=== PATIENT | male | born 1950 | race Caucasian/White ===

== ENCOUNTER 2018-07-18 14:54 | Emergency (ER) | payer OTHER ==
[~2018-07-18] VITALS: Ht 175.3 cm; Wt 72.6 kg
[~2018-07-18 14:54] MED LIST: CATAFLAM50 MG PO; CIPRO500 MG PO; DOXAZOSIN MESYLA2 MG; ENALAPRIL MALEA10 MG; GLIPIZIDE10 MG; SURFAK240 M1 PO; ULTRACET PO
== END 2018-07-18 18:42 | disposition home or self-care (01) ==
LOC: ER 14:54
DX: J11.1 Influenza due to unidentified influenza virus with other respiratory manifestations (principal); J32.0 Chronic maxillary sinusitis

== ENCOUNTER 2021-10-05 18:52 | Inpatient (IN) | payer OTHER ==
[~2021-10-05] VITALS: Ht 172.7 cm; Wt 77.1 kg
[2021-10-05] MEDS ORDERED: JANUVIA25 MG PO (19:12)
[2021-10-05] MEDS ORDERED: INTEGRA PLUS C1 EACH PO (19:13)
[2021-10-05] MEDS ORDERED: VALSARTAN320 MG PO (19:13)
[2021-10-05] MEDS ORDERED: NEURONTIN300 MG PO (19:13)
[2021-10-05] MEDS ORDERED: LABETALOL HCL200 MG (19:14)
[2021-10-05] MEDS ORDERED: PENTOXIFYLLINE400 MG PO (19:14)
[2021-10-05] MEDS ORDERED: CHILDREN'S ASPI81 MG PO (19:14)
[2021-10-06] MEDS ORDERED: AMLODIPINE BESYL5 MG (15:46)
[2021-10-06] MEDS ORDERED: SIMVASTATIN40 MG (15:47)
[2021-10-06] MEDS ORDERED: DOXAZOSIN MESYLA4 MG (15:47)
[2021-10-16] MEDS ORDERED: NIFEDIPINE ER60 MG PO (16:14)
[2021-10-16] MEDS ORDERED: INTEGRA PLUS C1 EACH PO (16:14)
[2021-10-16] MEDS ORDERED: VITAMIN D3125 MC2 PO (16:14)
[2021-10-16] MEDS ORDERED: LOSARTAN POTASS50 MG PO (16:14)
[2021-10-16] MEDS ORDERED: LABETALOL HCL200 MG PO (16:14)
[2021-10-16] MEDS ORDERED: ST. JOSEPH ASPI81 M2 PO (16:14)
[2021-10-16] MEDS ORDERED: CARdura 4MG TABLET PO (16:14)
[2021-10-16] MEDS ORDERED: Lantus 1000 UNITS/10 SUBCUTANEO (16:14)
[2021-10-16] MEDS ORDERED: GABAPENTIN300 MG PO (16:14)
[2021-10-16] MEDS ORDERED: SIMVASTATIN40 MG PO (16:14)
[2021-10-16] MEDS ORDERED: B Complex CAPSULE PO (16:14)
[2021-10-16] MEDS ORDERED: HUMALOG100 UNIT/1 SUBCUTANEO (16:14)
[2021-10-16] MEDS ORDERED: Neurin-Sl Tablet Sl SL (16:14)
== END 2021-10-16 17:21 | disposition home or self-care (01) | DRG 682 ==
LOC: ER 18:52 → MEDJ 10-06 14:28 → SEC-K 10-06 14:28 → MEDJ 10-06 14:45
PROVIDERS: ADMIT Internal Medicine; ATTEND Internal Medicine
PROC: 4A12X4Z Monitoring of Cardiac Electrical Activity, External Approach (ICD-10-PCS; 2021-10-06)
PROC: 30233N1 Transfusion of Nonautologous Red Blood Cells into Peripheral Vein, Percutaneous Approach (ICD-10-PCS; 2021-10-06)
PROC: 5A09457 Assistance with Respiratory Ventilation, 24-96 Consecutive Hours, Continuous Positive Airway Pressure (ICD-10-PCS; 2021-10-06)
PROC: B24BZZZ Ultrasonography of Heart with Aorta (ICD-10-PCS; principal; 2021-10-07)
PROC: 5A1D70Z Performance of Urinary Filtration, Intermittent, Less than 6 Hours Per Day (ICD-10-PCS; 2021-10-07)
PROC: 5A1D70Z Performance of Urinary Filtration, Intermittent, Less than 6 Hours Per Day (ICD-10-PCS; 2021-10-09)
PROC: 5A1D70Z Performance of Urinary Filtration, Intermittent, Less than 6 Hours Per Day (ICD-10-PCS; 2021-10-12)
PROC: 05HM33Z Insertion of Infusion Device into Right Internal Jugular Vein, Percutaneous Approach (ICD-10-PCS; 2021-10-13)
PROC: B513YZA Fluoroscopy of Right Jugular Veins using Other Contrast, Guidance (ICD-10-PCS; 2021-10-13)
PROC: 5A1D70Z Performance of Urinary Filtration, Intermittent, Less than 6 Hours Per Day (ICD-10-PCS; 2021-10-14)
PROC: 5A1D70Z Performance of Urinary Filtration, Intermittent, Less than 6 Hours Per Day (ICD-10-PCS; 2021-10-16)
DX: N17.8 Other acute kidney failure (principal); J96.00 Acute respiratory failure, unspecified whether with hypoxia or hypercapnia; I21.4 Non-ST elevation (NSTEMI) myocardial infarction; I50.1 Left ventricular failure, unspecified; I12.0 Hypertensive chronic kidney disease with stage 5 chronic kidney disease or end stage renal disease; N18.6 End stage renal disease; D64.9 Anemia, unspecified; I16.0 Hypertensive urgency; E11.40 Type 2 diabetes mellitus with diabetic neuropathy, unspecified; Z79.4 Long term (current) use of insulin; E78.49 Other hyperlipidemia; E11.22 Type 2 diabetes mellitus with diabetic chronic kidney disease; N18.9 Chronic kidney disease, unspecified; D63.1 Anemia in chronic kidney disease; E87.6 Hypokalemia; Z20.822 Contact with and (suspected) exposure to COVID-19; Z99.2 Dependence on renal dialysis; Z99.89 Dependence on other enabling machines and devices; I11.0 Hypertensive heart disease with heart failure